=== PATIENT | female | born 1990 | race American Indian/Alaskan Native ===

== ENCOUNTER 2017-08-14 15:44 | Emergency (ER) | payer OTHER ==
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
[2017-08-14] MEDS ORDERED: TYLENOL PO ONE (18:27)
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
[2017-08-14 20:48] VITALS: BP 127/85
== END 2017-08-14 20:48 | disposition home or self-care (01) ==
LOC: ED 15:44
DX: S09.90XA Unspecified injury of head, initial encounter (principal); G44.319 Acute post-traumatic headache, not intractable; M54.5 Low back pain; M54.2 Cervicalgia; V49.59XA Passenger injured in collision with other motor vehicles in traffic accident, initial encounter; Y93.89 Activity, other specified; Y92.89 Other specified places as the place of occurrence of the external cause; Y99.8 Other external cause status; F17.200 Nicotine dependence, unspecified, uncomplicated
CPT/HCPCS: 70450; 72125; 72131